=== PATIENT | male | born 1960 | race Asian ===

== ENCOUNTER 2018-02-12 00:13 | Emergency (ER) | payer MEDICAID ==
[~2018-02-12] VITALS: Ht 165.1 cm; Wt 91.6 kg
[2018-02-12 00:19] VITALS: BP 158/106
--- NOTE | 2018-02-12 00:22 | NUR ---
Patient ambulated to bed 10. RN evaluating patient at bedside.
--- NOTE | 2018-02-12 00:24 | NUR ---
PT PRESENTS TO ED WITH C/O COUGH AND HEADACHE X 3 DAYS. PT DENIES SOB/CP. LUNG SOUNDS CLEAR TO ASCULTATION BILATERALLY. NO DISTRESS NOTED. PT PLACED IN BED, MD AT BEDSIDE. PMH--HTN RX--UKNOWN FOR HTN
--- NOTE | 2018-02-12 00:24 | NUR ---
Dr. Lion evaluating patient at bedside.
[2018-02-12] MEDS ORDERED: IBUPROFEN 800 MG TAB PO ONE (00:25)
[2018-02-12] MEDS ORDERED: cloNIDine 0.1 MG TAB PO ONE (00:25)
--- NOTE | 2018-02-12 00:32 | NUR ---
XRAY AT BEDSIDE
[2018-02-12 00:51] VITALS: BP 148/89
--- NOTE | 2018-02-12 00:51 | NUR ---
Patient discharged with v/s stable. Written and verbal after care instructions given and explained. Patient alert, oriented and verbalized understanding of instructions. Ambulatory with steady gait. All questions addressed prior to discharge. ID band removed. Patient advised to follow up with PMD. Rx of PROMETHAZINE HCL/DEXTROMETHROPHAN HYDROBROMIDE, IBUPROFEN given. Patient educated on indication of medication including possible reaction and side effects. Opportunity to ask questions provided and answered.
== END 2018-02-12 00:51 | disposition home or self-care (01) ==
LOC: MED 00:13
DX: R05 Cough (principal); R51 Headache; I10 Essential (primary) hypertension
CPT/HCPCS: 71045; 99283